=== PATIENT | female | born 1970 | race African-American/Black ===

== ENCOUNTER → 2020-10-26 15:51 | Outpatient (CLI) | payer OTHER, SELFPAY ==
--- NOTE | ~2020-10-26 | MM_ITS ---
EXAMINATION: MM screening yolis BI w maxx HISTORY: Screening mammogram TECHNIQUE: Craniocaudal and mediolateral oblique 3-D tomosynthesis images were obtained and synthetic 2-D images were generated. CAD analysis was submitted and interpreted. COMPARISON: No prior mammogram is available for comparison at this institution. BREAST PARENCHYMAL COMPOSITION: The breasts are extremely dense, which lowers the sensitivity of mamm ography. FINDINGS: RIGHT BREAST: There are obscured masses in the middle third of the inner and outer breast. LEFT BREAST: There is no evidence of suspicious mass, calcification, or architectural distortion to s uggest malignancy. IMPRESSION: 1. Obscured right breast masses which may represent the patient's baseline however no comparison is c urrently available. 2. Comparison with prior mammograms is necessary. BI-RADS Category 0: Incomplete: Needs comparison with prior mammograms. Reviewed, dictated and finalized at location A. IMPRESSION: 1. Obscured right breast masses which may represent the patient's baseline moreno nemesio no comparison is currently available. 2. Comparison with prior mammograms is necessary. BI-RADS Category 0: Incomplete: Needs comparison with prior mammograms.
== END ==
PROVIDERS: Visit Provider Obstetrics & Gynecology
DX: Z12.31 Encounter for screening mammogram for malignant neoplasm of breast (principal); R92.8 Other abnormal and inconclusive findings on diagnostic imaging of breast
CPT/HCPCS: 77063; 77067

== ENCOUNTER 2020-12-07 01:41 | Day surgery (SDC) | payer OTHER, SELFPAY ==
[2020-11-03 13:56] VITALS: BMI 22.1
[2020-11-24 13:03] VITALS: BMI 22.8
[2020-12-07 09:34] VITALS: BP 115/78; PULSE 76; RESP 16; TEMP 36.1; O2SAT 100; BMI 22.5
[2020-12-07] MEDS: LACTATED RINGERS 1,000 ML 150 ML IV CONT (09:50)
--- NOTE | 2020-12-07 09:54 | WPDGICN ---
Assessment and Plan Assessment and plan (1) Encounter for screening colonoscopy: Code(s): Z12.11 - Encounter for screening for malignant neoplasm of colon Status: Acute Assessment and Plan: Patient presents for screening colonoscopy. Appears to be at average risk for colon polyps. GI Consult Note Consult date/time: 12/07/20 09:54 HPI: Shanice Jacques is a 50 year old female Presents for neoplasia screening. Patient reports that her current weight appetite bowel movements are normal. Patient denies abdominal pain. Patient has had no bleeding. Family history is noncontributory. Review of Systems Review of Systems: All systems reviewed & are unremarkable except as noted in HPI and below [facility] History Surgical History (Updated 11/11/20 @ 12:27 by Leon Bai DO) History of tubal ligation Social History Social History Smoking status: Never smoker Alcohol intake: current Drinks per week: 2 Alcohol use details: a few times a month Substance use: never Substance use type: does not use Living arrangements: with family Spiritual care concerns: No Meds Home Medications and Allergies Home Medications Medication Instructions Recorded Confirmed Type No Home Medications 11/03/20 12/07/20 History Allergies Allergy/AdvReac Type Severity Reaction Status Date / Time No Known Allergies Allergy Verified 12/07/20 09:34 Vital Signs Vital Signs - 24 hr 12/07/20 09:34 Temperature 97 F L Pulse Rate 76 Respiratory Rate 16 Blood Pressure 115/78 Pulse Oximetry 100 Exam Narrative: Physical exam reveals patient be alert. Vital signs stable. HEENT exam is unremarkable. Patient is anicteric. Lungs are clear to auscultation and percussion. Heart is without murmur or extra sounds. Abdominal exam bowel sounds are present soft nontender with no organomegaly. Digital external rectal exam is normal.
[2020-12-07 10:24] VITALS: BP 98/60; PULSE 78; RESP 16; O2SAT 100
[2020-12-07 10:34] VITALS: BP 106/73; PULSE 73; RESP 18; O2SAT 100
[2020-12-07 10:44] VITALS: BP 118/77; PULSE 60; RESP 16; O2SAT 100
== END 2020-12-07 11:00 | disposition home or self-care (01) ==
PROVIDERS: PCP Family Medicine; Visit Provider Internal Medicine Gastroenterology
PROC: 0DJD8ZZ Inspection of Lower Intestinal Tract, Via Natural or Artificial Opening Endoscopic (ICD-10-PCS; CPT 45378; principal; 2020-12-07 10:30)
DX: Z12.11 Encounter for screening for malignant neoplasm of colon (principal); K64.8 Other hemorrhoids
CPT/HCPCS: 45378; J2704; J7120

== ENCOUNTER → 2022-05-21 10:50 | Outpatient (CLI) | payer OTHER, SELFPAY ==
--- NOTE | ~2022-05-21 | MM_ITS ---
EXAMINATION: MM screening yolis BI w maxx HISTORY: Screening mammogram TECHNIQUE: Craniocaudal and mediolateral oblique 3-D tomosynthesis images were obtained and synthetic 2-D images were generated. CAD analysis was submitted and interpreted. COMPARISON: 10/26/2020, 10/09/2019, 05/23/2018 bilateral screening mammogram examinations BREAST PARENCHYMAL COMPOSITION: The breasts are extremely dense, which lowers the sensitivity of mamm ography. FINDINGS: There is an approximately 2 cm circumscribed mass in the mid to lower outer right breast. D iagnostic right mammogram and right breast ultrasound examination are recommended. Otherwise there is no evidence of suspicious mass, calcification, or architectural distortion to sugg est malignancy in either breast. There are multiple bilateral benign calcifications. There has been n o other suspicious interval change. IMPRESSION: 1. New 2 cm circumscribed mid to lower outer right breast mass 2. Diagnostic right mammogram and right breast ultrasound examination are recommended BI-RADS Category 0: Incomplete: Needs additional imaging evaluation. Reviewed, dictated and finalized at location A. IMPRESSION: 1. New 2 cm circumscribed mid to lower outer right breast mass 2. Diagnostic right mammogram and right breast ultrasound examination are recom mended BI-RADS Category 0: Incomplete: Needs additional imaging evaluation.
== END ==
PROVIDERS: PCP Obstetrics & Gynecology; Visit Provider Obstetrics & Gynecology
DX: Z12.31 Encounter for screening mammogram for malignant neoplasm of breast (principal); R92.8 Other abnormal and inconclusive findings on diagnostic imaging of breast
CPT/HCPCS: 77063; 77067

== ENCOUNTER → 2022-07-30 09:38 | Outpatient (CLI) | payer OTHER, SELFPAY ==
--- NOTE | ~2022-07-30 | MMUS_ITS ---
EXAMINATION: MM diagnostic yolis RT w maxx, US breast RT limited HISTORY: Right breast mass on screening mammogram TECHNIQUE: Additional 3-D tomosynthesis images of the right breast were performed and synthetic 2-D i mages were generated. CAD analysis was submitted and interpreted. High resolution limited right breas t ultrasound was performed. COMPARISON: 05/21/2022, 10/26/2020, 10/09/2019 BREAST PARENCHYMAL COMPOSITION: The breasts are extremely dense, which lowers the sensitivity of mamm ography. FINDINGS: MAMMOGRAPHIC FINDINGS: There is a 2.4 cm oval, obscured, equal density mass in the anterior third of the lower-outer breast at 8:00 location, 4 cm from the nipple. ULTRASOUND: There is a 1.9 cm cyst at the 7:30 location, 4 cm from the nipple corresponding to the mammographic f inding in question. There is a 9 mm cyst near the nipple. There is a 5 mm cyst at the 6:00 location, 4 cm from the nipple. IMPRESSION: 1. No mammographic or sonographic evidence of malignancy. 2. Recommend routine screening mammography in one year. BI-RADS Category 2: Benign finding(s). Reviewed, dictated and finalized at location A. IMPRESSION: 1. No mammographic or sonographic evidence of malignancy. 2. Recommend routine screening mammography in one year. BI-RADS Category 2: Benign finding(s).
== END ==
PROVIDERS: PCP Obstetrics & Gynecology; Visit Provider Obstetrics & Gynecology
DX: R92.8 Other abnormal and inconclusive findings on diagnostic imaging of breast (principal)
CPT/HCPCS: 76642; 77061; 77065; G0279

== ENCOUNTER 2023-03-06 10:27 | Outpatient (CLI) | payer OTHER, SELFPAY ==
--- NOTE | ~2023-03-06 | MMUS_ITS ---
EXAMINATION: MM diagnostic yolis BI w maxx, US breast BI complete HISTORY: Enlarging right breast lump TECHNIQUE: Bilateral full field and spot right 3-D tomosynthesis images were performed and synthetic 2-D images were generated. CAD analysis was submitted and interpreted. High resolution bilateral comp lete breast ultrasound examination of all 4 quadrants and subareolar areas was performed. COMPARISON: 07/30/2022 diagnostic right mammogram and limited right breast ultrasound 05/21/2022, 10/26/2020 bilateral screening mammogram examinations there is an approximate 4 x 5 cm circ umscribed opacity anteriorly in the inner mid right breast, corresponding to the area of clinical com plaint of enlarging right breast lump, a new finding since 10/26/2020. The extremely dense stroma may obscure masses bilaterally. Bilateral complete breast ultrasound exami nation was performed. Scattered bilateral benign calcifications are noted. BREAST PARENCHYMAL COMPOSITION: The breasts are extremely dense, which lowers the sensitivity of mamm ography. FINDINGS: MAMMOGRAPHIC FINDINGS: There is an approximate 4 x 5 cm circumscribed opacity anteriorly in the inner mid right breast, ana luisa esponding to the area of clinical complaint of enlarging right breast lump, a new finding since 2020. The extremely dense stroma may obscure masses bilaterally. Bilateral complete breast ultrasound exami nation was performed. Scattered bilateral benign calcifications are noted. ULTRASOUND: No suspicious mass or shadowing of either breast is detected. The following cysts were id entified: Right breast: Corresponding to the mammographic finding is at 2:00-6:00 is a 2.7 x 4.2 cm sonolucency with through transmission and posterior enhancement consistent with large cyst. Additional simple cysts are identified at 12:00 1 cm from nipple, measuring up to 4.6 mm, at 6:00 4 c m from nipple, measuring up to 6 mm and at 9:00 3 cm from nipple, measuring up to 11 mm, in addition to an approximately 6.8 mm subareolar right cyst. Left breast: 3:00 4 cm from nipple: Complicated 8 x 8.8 x 6.3 mm cyst with through transmission and posterior enha ncement 4-6:00: Up to 2.2 x 1.5 x 3.7 cm septated cyst 8:00: 4.4 x 6 mm cyst IMPRESSION: 1. Bilateral benign cysts; no mammographic or sonographic evidence of malignancy is detected 2. Routine mammographic screening is recommended BI-RADS Category 2: Benign finding(s). Reviewed, dictated and finalized at location A. FORM POWER TECHNICIAN IMPRESSION: 1. Bilateral benign cysts; no mammographic or sonographic evidence of malignanc y is detected 2. Routine mammographic screening is recommended BI-RADS Category 2: Benign finding(s).
== END 2023-03-06 10:28 | disposition home or self-care (01) ==
LOC: ANHIMG 10:32
PROVIDERS: PCP Nurse Practitioner; Visit Provider Nurse Practitioner
DX: N63.0 Unspecified lump in unspecified breast (principal)
CPT/HCPCS: 76641; 77062; 77066; G0279

== ENCOUNTER 2025-01-28 15:42 | Outpatient (CLI) | payer OTHER, SELFPAY ==
--- NOTE | ~2025-01-28 | MM_ITS ---
EXAMINATION: MM screening [facility] BI w maxx HISTORY: Screening TECHNIQUE: Craniocaudal and mediolateral oblique 3-D tomosynthesis images were obtained and synthetic 2-D images were generated. CAD analysis was submitted and interpreted. COMPARISON: Comparison to multiple prior studies sequentially, with oldest reviewed study dated 05/23/2018. BREAST PARENCHYMAL COMPOSITION: Dense: The breasts are extremely dense, which lowers the sensitivity of mammography. FINDINGS: Decreased size of partially obscured benign mass lower inner quadrant of the right breast, middle third, previously characterized as a cyst. There is no evidence of suspicious mass, calcification, or architectural distortion to suggest malignancy in either breast. There has been no suspicious interval change. IMPRESSION: 1. No mammographic evidence of malignancy. 2. Recommend routine screening mammography in one year. BI-RADS Category 2: Benign finding(s). Reviewed, dictated and finalized at location O. CLEANER
--- OUTSIDE RECORDS SUMMARY | 2025-01-28 18:22 | XMS_ITS | Clinical Summary ---
Author Organization [facility] Address [address] [place] [address] Care Team Providers Care Barber Name Role Phone Unavailable Primary Care Provider Unavailabl e Source Comments [facility],non-owned Affiliates and Associated Physician Practices is amultiple site organization consisting of ambulatory clinics and hospital sitesin [place], [place], [place] and [place]. This disclosure is being madepursuant to the Care Everywhere program and may not contain all information available regarding this patient. 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 Gender Identity Not on file Sexual Orientation Not on file Plan of Treatment Health Maintenance Due Date Last Done Comments COLOGUARD (AGES 45-75) - COL ON CA SCREENING 1968 COLON MONITORING 1968 COLONOSCOPY - COLON CA SCREENING 1968 CT COLONOGRAPHY - COLON CA SCREENING 1968 Colorectal Cancer Screening 1968 FIT - COLON CA SCREENING 1968 FLEX SIG - COLON CA SCREENING 1968 LIPID TESTING 1968 MAMMOGRAM 1968 HIV SCREENING 11/01/1983 HEPATITIS C SCREENING 10/27/1986 DTAP/TDAP/TD VACCINES (1 - Tdap) 11/01/1987 HEPATITIS B VACCINE (1 of 3 - 19+ 3-dose series) 11/01/1987 Cervical Cancer Screening 1989 PAP SMEAR 1989 PAP with HPV 1998 PNEUMOCOCCAL VACCINE 50+ (1 of 1 - PCV) 2018 ZOSTER VACCINE (1 of 2) 2018 DEPRESSION SCREENING 03/11/2024 COVID-19 VACCINE ( - 2024-2 6 season) 2024 INFLUENZA VACCINE (#1) 2024 HIB VACCINE Aged Out No longer eligi ble based on patient's age to complete this topic HPV VACCINE Aged Out No longer eligi ble based on patient's age to complete this topic MENINGOCOCCAL (Group B) VACC INE SHARED DECISION-MAKING Aged Out No longer eligibl e based on patient's age to complete this topic MENINGOCOCCAL GROUPS A/C/Y/W VACCINE Aged Out No longer eligible b ased on patient's age to complete this topic Insurance [employer]
--- OUTSIDE RECORDS SUMMARY | 2025-01-28 18:22 | XMS_ITS | Clinical Summary ---
Author Organization [facility] Address [address] [place] [id number] Care Team Providers Care Value Analysis Coordinator Name Role Phone Jignesh Mayer MD Primary Care Provider [phone] Allergies No known active allergies Medications dextromethorphan -guaiFENesin ER (MUCINEX DM) 30-600 MG TABLET SR 12 HR 12 hr tablet Take 1 tablet by mouth every 12 (twelve) hours as needed. 28 tablet 03/26/2023 Active Social History Tobacco Use Types Packs/Day Years Used Date Smoking Tobacco: Never Smokeless Tobacco: Never Tobacco Cessation:Counseling Given: Not Answered Comments No Sex and Gender Information Value Date Recorded Sex Assigned at Not on file Legal Sex Female 7:17 PM CDT Gender Identity Not on file Sexual Orientation Not on file Last Filed Vital Signs Vital Sign Reading Time Taken Comments Blood Pressure 137/80 03/26/2023 4:13 PM MANAGER PRACTICE Pulse 123 03/26/2023 4:13 PM MANAGER PRACTICE Temperature 39.2 C (102.6 F) 03/26/2023 4:13 PM MANAGER PRACTICE Respiratory Rate 18 03/26/2023 4:13 PM MANAGER PRACTICE Oxygen Saturation 98% 03/26/2023 4:13 PM MANAGER PRACTICE Inhaled Oxygen Concentration - - Weight 68 kg (150 lb) 03/26/2023 4:13 PM MANAGER PRACTICE Height 172.7 cm (5' 8) 03/26/2023 4:13 PM MANAGER PRACTICE Body Mass Index 22.81 03/26/2023 4:13 PM MANAGER PRACTICE Plan of Treatment Health Maintenance Due Date Last Done Comments Colorectal Cancer Screening Colonoscopy (10 Years) 1968 Annual Physical 11/01/1971 DTaP, Tdap and Td Vaccines (1 - Tdap) 11/01/1987 Hepatitis B Vaccines (1 of 3 - 19+ 3-dose series) 11/01/1987 Cervical Cancer Screening Pap with HPV Testing (Age 30 to 64) Every 5 Years 1998 Mammogram Screening 2008 Pneumococcal Vaccine: 50+ Years (1 of 1 - PCV) 2018 Zoster Vaccines (1 of 2) 2018 COVID-19 Vaccine (3 - season) 2024 06/23/2020, 06/02/2020 Influenza Adult (#1) 2024 Cervical Cancer Screening Pap Smear (Age 30 to 64) Every 3 Years 02/14/2026 02/14/2023, 02/14/2023, 02/14/2023, Additional history exists Cervical Cancer Screening with HPV 02/14/2026 Hepatitis C Completed 02/14/2023 Hepatitis A Vaccines Aged Out No long er eligible based on patient's age to complete this topic Meningococcal B Vaccine Aged Out No l onger eligible based on patient's age to complete this topic Meningococcal Vaccine Aged Out No deidra duc eligible based on patient's age to complete this topic RSV Immunizations Under 20 Months Aged Out No longer eligible based on patient's age to complete this topic Insurance [facility] OPEN [facility] [place] [employer] Care Teams Value Analysis Coordinator Relationship Specialty Start Date End Date Jignesh Mayer MD PCP - General FAMILY PRACTICE 10/18/22
--- OUTSIDE RECORDS SUMMARY | 2025-01-28 18:22 | XMS_ITS | Data Portability ---
Author Organization [facility] Address [address] [place] [address] Assessment Encounter Date Assessment Date Assessment LastModified by Organization Details LastModified Time 02/12/2022 02/12/2022 Annual gynecological exam performed. Patient will come back in a year unless there are new symptoms. Not available 02/12/2022 09:53:29 02/14/2023 02/14/2023 Annual gynecological exam performed. Patient will come back in a year unless there are new symptoms. [email or web address] Not available 02/14/2023 16:32:59 07/06/2024 07/06/2024 Annual gynecological exam performed. Patient will come back in a year unless there are new symptoms. [email or web address] Not available 07/06/2024 16:46:22 Plan of Treatment Reminders Order Date Submit Date Provider Last Modified By Organization Details Last Modified Time Details Appointments None recorded. Lab pap, IG + HR HPV - HPV regardless but if HPV is positive need subtyping 16,18/45 2024 025 [facility] (Lab), [address], [place], [address], 14:56:42 CMP, serum or plasma 2024 025 [place] [facility], [address], [address], [place], [address], 05:01:53 CBC w/ auto diff 2024 025 [facility], [address], [address], [place], [address], 05:01:53 lipid panel, serum 2024 025 [facility], [address], [address], [place], [address], 5 10:45:54 HbA1c (hemoglobin A1c), blood 2024 025 [facility], [address], [address], [place], [address], 05:01:54 TSH, serum or plasma 2024 025 [facility], [address], [address], [place], [address], 5 05:01:53 vitamin D, 25-hydroxy, total, serum 2024 025 [facility], [address], [address], [place], [address], 5 05:01:53 vitamin B12 + folate, serum or blood 2024 025 [facility], [address], [address], [place], [address], 5 05:01:53 hbcab (hepatitis B core Ab) igm, serum 2022 023 [facility] (Lab), [address] [place], [address], 3 21:45:55 HBsAg (hepatitis B surface Ag), serum 2022 023 [facility] (Lab), [address] [place], [address], 3 21:45:54 hepatitis C virus Ab, serum 2022 023 [facility] (Lab), [address], [place], [address], 3 21:45:55 unlisted lab - HIV 1/2 antigen/ant ibody, reflex confirmatio n 2022 023 [facility] (Lab), [address], [place], [address], 3 21:45:54 RPR (rapid plasma reagin), serum 2022 023 [facility] (Lab), [address] [facility], [place], [address], 3 21:45:55 CBC w/ auto diff 2021 022 [facility] (Lab), [address] [facility], [place], [address], 2 03:15:04 CMP, serum or plasma 2021 022 [facility] (Lab), [address] [facility], [place], [address], 2 03:15:03 lipid panel, blood 2021 022 [facility] (Lab), [address] [facility], [place], [address], 2 03:15:02 TSH, serum or plasma 2021 022 [facility] (Lab), [address] [facility], [place], [address], 2 03:15:03 vitamin D, 25-hydroxy, total, serum 2021 022 [facility] (Lab), [address] [facility], [place], [address], 2 03:15:04 CBC w/ auto diff [address] (Lab), [address] [place], [address], 3 14:13:26 CMP, serum or plasma [address] (Lab), [address] [facility], [place], [address], 3 14:13:26 lipid panel, blood [address] (Lab), [address] [facility], [place], [address], 3 14:13:26 TSH, serum or plasma [address] (Lab), [address] [facility], [place], [address], 3 14:13:26 vitamin D, 25-hydroxy, total, serum [address] (Lab), [address] [facility], [place], [address], 3 14:13:27 Referral None recorded. Procedures None recorded. Surgeries None recorded. Imaging MAMMO, diagnostic, digital, bilateral 2024 025 [facility], [address], [place], [address], 5 05:01:54 US, breast, bilateral, complete 2024 025 [facility], [address], [address], [place], [address], 5 05:01:54 MAMMO, diagnostic, digital, bilateral 2022 023 [facility], [address], [place], [address], 4 12:43:14 US, breast, bilateral, complete 2022 023 [facility], [address], [place], [address], 4 05:01:45 Medication Orders metronidazo le 500 mg tablet 2022 024 [place] [id number], [address], [place], [id number], 4 12:49:46 Patient TargetsNo targets recorded. Patient InstructionsNo instructions recorded. Reason for Referral None Reported. Results Created Date Observation Date Name Description Value Unit Range Abnormal Flag Note LastModifiedBy Organization Detail LastModifiedTime 02/13/2002/12/2022 LIPID PANEL ,AMA (LDL- CALC) total cholesterol 206 mg/dL 0-199 high Not Available [facility] (Lab) [address] [place], [address], 02/13/2022 03:15:02 02/13/20 22 02/12/2022 LIPID PANEL ,AMA (LDL- CALC) triglyceride s 123 mg/dL 0.00-1 50.00 NCEP Refer ence Value s for Trigl yceri yolie: Mildred l: <150 mg/dL Borde rline High: 150 - 199 mg/dL High: 200 - 499 mg/dL Very High: >/= 500 mg/dL Not Available [facility] (Lab) [address] [place], [address], 02/13/2022 03:15:02 02/13/20 22 02/12/2022 LIPID PANEL ,AMA (LDL- CALC) HDL cholesterol 68 mg/dL >40 Not Available [facility] (Lab) [address] [place], [address], 02/13/2022 03:15:02 02/13/20 22 02/12/2022 LIPID PANEL ,AMA (LDL- CALC) LDL cholesterol 113 mg/dL 0-99 high Cutof f value s recom gurmeet d by the Natio nal Avani stero l Educa tion Progr am: TEJAS ABLE: Avani stero l <200 mg/dL LDL <100 mg/dL BORDE RLINE : Avani stero l 200-2 39 mg/dL LDL 101-1 59 mg/dL HIGHE R RISK: Avani stero l >240 mg/dL LDL >160 mg/dL , HDL <40 mg/dL Not Available [facility] (Lab) [address] [facility], [place], [address], 02/13/2022 03:15:02 02/13/20 22 02/12/2022 LIPID PANEL ,AMA (LDL- CALC) non-HDL cholesterol 138 mg/dL no refere nce range A reaso nable goal for non-H DL avani stero l is one that is 30 mg/dL highe r than the LDL avani stero l goal. Not Available [facility] (Lab) [address] [facility], [place], [address], 02/13/2022 03:15:02 02/13/20 22 02/12/2022 LIPID PANEL ,AMA (LDL- CALC) chol/HDL ratio 3.0 . 0.0-5. 0 Not Available [facility] (Lab) [address] [place], [address], 02/13/2022 03:15:02 02/13/20 22 02/12/2022 CMP(C OMPRE HENSI VE METAB OLIC PANEL ) sodium 138 mmol/ L 133-14 6 Not Available [facility] (Lab) [address] [place], [address], 02/13/2022 03:15:03 02/13/20 22 02/12/2022 CMP(C OMPRE HENSI VE METAB OLIC PANEL ) potassium 4.3 mmol/ L 3.5-5. 1 Not Available [facility] (Lab) [address] [facility], [place], [address], 02/13/2022 03:15:03 02/13/20 22 02/12/2022 CMP(C OMPRE HENSI VE METAB OLIC PANEL ) chloride 102 mmol/ L 98-107 Not Available [facility] (Lab) [address] [facility], [place], [address], 02/13/2022 03:15:03 02/13/20 22 02/12/2022 CMP(C OMPRE HENSI VE METAB OLIC PANEL ) carbon dioxide 29 mmol/ L 21-31 Not Available [facility] (Lab) [address] [facility], [place], [address], 02/13/2022 03:15:03 02/13/20 22 02/12/2022 CMP(C OMPRE HENSI VE METAB OLIC PANEL ) anion gap 7 mmol/ L 4-13 Not Available [facility] (Lab) [address] [facility], [place], [address], 02/13/2022 03:15:03 02/13/20 22 02/12/2022 CMP(C OMPRE HENSI VE METAB OLIC PANEL ) blood urea nitrogen 11 mg/dL 7-25 Not Available [facility] (Lab) [address] [facility], [place], [address], 02/13/2022 03:15:03 02/13/20 22 02/12/2022 CMP(C OMPRE HENSI VE METAB OLIC PANEL ) creatinine 0.85 mg/dL 0.60-1 .30 Not Available [facility] (Lab) [address] [facility], [place], [address], 02/13/2022 03:15:03 02/13/20 22 02/12/2022 CMP(C OMPRE HENSI VE METAB OLIC PANEL ) egfrcr (CKD-epi 2020) 82 mL/mi n/1.7 3_m2 >=60 Not Available [facility] (Lab) [address] [facility], [place], [address], 02/13/2022 03:15:03 02/13/20 22 02/12/2022 CMP(C OMPRE HENSI VE METAB OLIC PANEL ) calcium 10.0 mg/dL 8.3-10 .5 Not Available [facility] (Lab) [address] [facility], [place], [address], 02/13/2022 03:15:03 02/13/20 22 02/12/2022 CMP(C OMPRE HENSI VE METAB OLIC PANEL ) glucose 71 mg/dL 70-100 Not Available [facility] (Lab) [address] [facility], [place], [address], 02/13/2022 03:15:03 02/13/20 22 02/12/2022 CMP(C OMPRE HENSI VE METAB OLIC PANEL ) protein, total 8.3 g/dL 6.4-8. 3 Not Available [facility] (Lab) [address] [facility], [place], [address], 02/13/2022 03:15:03 02/13/20 22 02/12/2022 CMP(C OMPRE HENSI VE METAB OLIC PANEL ) albumin 4.4 g/dL 3.5-5. 0 Not Available [facility] (Lab) [address] [place], [address], 02/13/2022 03:15:03 02/13/20 22 02/12/2022 CMP(C OMPRE HENSI VE METAB OLIC PANEL ) ALT 10 units /L 9-43 Not Available [facility] (Lab) [address] [place], [address], 02/13/2022 03:15:03 02/13/20 22 02/12/2022 CMP(C OMPRE HENSI VE METAB OLIC PANEL ) alkaline phosphatase 53 units /L 34-104 Not Available [facility] (Lab) [address] [place], [address], 02/13/2022 03:15:03 02/13/20 22 02/12/2022 CMP(C OMPRE HENSI VE METAB OLIC PANEL ) AST 17 units /L 13-39 Not Available [facility] (Lab) [address] [facility], [place], [address], 02/13/2022 03:15:03 02/13/20 22 02/12/2022 CMP(C OMPRE HENSI VE METAB OLIC PANEL ) bilirubin, total 0.8 mg/dL 0.2-1. 2 Not Available [facility] (Lab) [address] [facility], [place], [address], 02/13/2022 03:15:03 02/13/20 22 02/12/2022 TSH, REFLE X FREE T4 TSH 0.87 uIU/m L 0.30-5 .33 Not Available [facility] (Lab) [address] [facility], [place], [address], 02/13/2022 03:15:03 02/13/20 22 02/12/2022 VITAM IN D, 25-OH (TOTA L D2/D3 ) vitamin D, 25-hydroxy, total 30.6 NG/mL 30.0-1 00.0 Sugge stive of Defic iency : <20 ng/mL Sugge stive of Insuf ficie ncy: 20-29 ng/mL Sugge stive of Suffi cienc y: 30-10 0 ng/mL Sugge stive of Toxic ity: >150 ng/mL Not Available [facility] (Lab) [address] [facility], [place], [address], 02/13/2022 03:15:04 02/13/20 22 02/12/2022 CBC W/DIF F WBC 5.1 10'3/ uL 3.6-10 .2 Not Available [facility] (Lab) [address] [facility], [place], [address], 02/13/2022 03:15:04 02/13/20 22 02/12/2022 CBC W/DIF F RBC 5.07 10'6/ uL (based on docume nted legal sex) 4.10-5 .30 Not Available [facility] (Lab) [address] [facility], [place], [address], 02/13/2022 03:15:04 02/13/20 22 02/12/2022 CBC W/DIF F HGB 10.4 g/dL (based on docume nted legal sex) 11.9-1 5.8 low Not Available [facility] (Lab) [address] [facility], [place], [address], 02/13/2022 03:15:04 02/13/20 22 02/12/2022 CBC W/DIF F HCT 37.3 % (based on docume nted legal sex) 37.4-4 8.3 low Not Available [facility] (Lab) [address] [facility], [place], [address], 02/13/2022 03:15:04 02/13/20 22 02/12/2022 CBC W/DIF F MCV 73.6 fL 82.0-9 9.0 low Not Available [facility] (Lab) [address] [facility], [place], [address], 02/13/2022 03:15:04 02/13/20 22 02/12/2022 CBC W/DIF F MCH 20.5 pg 27.0-3 3.0 low Not Available [facility] (Lab) [address] [facility], [place], [address], 02/13/2022 03:15:04 02/13/20 22 02/12/2022 CBC W/DIF F MCHC 27.9 g/dL 32.0-3 6.0 low Not Available [facility] (Lab) [address] [facility], [place], [address], 02/13/2022 03:15:04 02/13/20 22 02/12/2022 CBC W/DIF F RDW 19.9 % 11.0-1 5.0 high Not Available [facility] (Lab) [address] [facility], [place], [address], 02/13/2022 03:15:04 02/13/20 22 02/12/2022 CBC W/DIF F plt 283 10'3/ uL 150-45 0 Not Available [facility] (Lab) [address] [facility], [place], [address], 02/13/2022 03:15:04 02/13/20 22 02/12/2022 CBC W/DIF F MPV . Not measu red Not Available [facility] (Lab) [address] [facility], [place], [address], 02/13/2022 03:15:04 02/13/20 22 02/12/2022 CBC W/DIF F NRBC's 0.0 % 0 Not Available [facility] (Lab) [address] [facility], [place], [address], 02/13/2022 03:15:04 02/13/20 22 02/12/2022 CBC W/DIF F absolute NRBCs 0.0 10'3/ uL 0 Not Available [facility] (Lab) [address] [facility], [place], [address], 02/13/2022 03:15:04 02/13/20 22 02/12/2022 CBC W/DIF F neutrophils 54.8 % 37.0-7 2.0 Not Available [facility] (Lab) [address] [facility], [place], [address], 02/13/2022 03:15:04 02/13/20 22 02/12/2022 CBC W/DIF F lymphocytes 33.1 % 16.0-4 8.0 Not Available [facility] (Lab) [address] [facility], [place], [address], 02/13/2022 03:15:04 02/13/20 22 02/12/2022 CBC W/DIF F monocytes 10.3 % 4.0-14 .0 Not Available [facility] (Lab) [address] [facility], [place], [address], 02/13/2022 03:15:04 02/13/20 22 02/12/2022 CBC W/DIF F eosinophils 0.6 % 0.0-9. 0 Not Available [facility] (Lab) [address] [facility], [place], [address], 02/13/2022 03:15:04 02/13/20 22 02/12/2022 CBC W/DIF F basophils 0.8 % 0.0-2. 0 Not Available [facility] (Lab) [address] [facility], [place], [address], 02/13/2022 03:15:04 02/13/20 22 02/12/2022 CBC W/DIF F immature granulocytes 0.4 % no define d refere nce range Not Available [facility] (Lab) [address] [facility], [place], [address], 02/13/2022 03:15:04 02/13/20 22 02/12/2022 CBC W/DIF F absolute neutrophils 2.8 10'3/ uL 1.1-6. 0 Not Available [facility] (Lab) [address] [facility], [place], [address], 02/13/2022 03:15:04 02/13/20 22 02/12/2022 CBC W/DIF F absolute lymphocytes 1.7 10'3/ uL 0.7-3. 4 Not Available [facility] (Lab) [address] [facility], [place], [address], 02/13/2022 03:15:04 02/13/20 22 02/12/2022 CBC W/DIF F absolute monocytes 0.5 10'3/ uL 0.3-1. 0 Not Available [facility] (Lab) [address] [place], [address], 02/13/2022 03:15:04 02/13/20 22 02/12/2022 CBC W/DIF F absolute eosinophils 0.0 10'3/ uL 0.0-0. 6 Not Available [facility] (Lab) [address] [facility], [place], [address], 02/13/2022 03:15:04 02/13/20 22 02/12/2022 CBC W/DIF F absolute basophils 0.0 10'3/ uL 0.0-0. 1 Not Available [facility] (Lab) [address] [facility], [place], [address], 02/13/2022 03:15:04 02/13/20 22 02/12/2022 CBC W/DIF F absolute immature granulocytes 0.0 10'3/ uL 0.00-0 .10 2021 2:11 AM: P indic ates parti al resul ts on a panel have been relea sed. Addit ional resul ts will follo w. 2021 2:11 AM: This resul t has been final verif ied. No addit ional or marti ed resul ts are expec mindi. Not Available [facility] (Lab) [address] [facility], [place], [address], 02/13/2022 03:15:04 02/13/20 22 02/12/2022 IMAGE GUIDE D PAP AND HPV REGAR DLESS image guided Pap, HPV regardless of Pap result SEE RESULT S BELOW CASE REPOR T: Cytol ogy Gynec ologi keyona Repor t Case: [id number] Autho deonte diaz Provi crow: Morgan Carr MD Colle cted: 02/12 1355 Order ing Locat ion: [place] Patho log[facility] Recei agustin: 02/13 0116 First Scree n: Socorro Potts ica Speci men: Scree farzana Pap - Image d, Cervi x STATE MENT OF ADEQU ACY: Satis facto ry for evalu ation Trans forma tion zone compo nent prese nt FINAL DIAGN OSIS: Negat marla for Intra epith elial Lesio n or Malig barbi (NIL) . Elect [address]aud[address] by Socorro Potts ica on 2021 at 3:41 PM ----- ----- ----- ----- ----- ----- ----- ----- ----- ----- ----- ----- ----- ----- ----- ----- ----- ---- HPV RESUL TS: HPV mRNA E6/E7 : No HPV mRNA Detec mindi NOTE: This high risk HPV mRNA assay detec ts fourt een high- risk HPV types (16, 18, 31, 33, 35, 39, 45, 51, 52, 56, 58, 59, 66, 68) witho ut diffe renti ation . COMME NT: Note: This speci men was revie wed by a Cytot echno logis t and/o r Patho logis t (as indic ated in this repor t) after evalu ation using the Thinp rep Imagi ng Syste m. CLINI [facility] INFOR MATIO N: Menst rual Statu s: LMP (if appli cable ): Clini keyona Histo ry/Pr eviou s Pap: Type of Neopl clover (if appli cable ): Signi fican t Clini keyona Findi ngs: Other Histo ry: Hormo christi (if appli cable ): PAP EDUCA ANDREAS L NOTE: The Pap Test is a scree farzana test with an inher ent false negat marla rate. Liqui d-bas ed sampl ing may decre ase, but will not elimi summer, false negat marla resul ts. A negat marla resul t does not precl ude the prese nce and/o r devel opmen t of disea se, since the prese nce of abnor mal cells in the sampl e depen ds on the locat ion of the lesio n and sampl ing techn ique. Tommie nued regul ar scree farzana is the best metho d of cance r preve ntion . If repor mindi cytol ogic findi ng do not corre late with physi keyona and/o r histo rical findi ngs, furth er inves tigat ion is recom gurmeet d, as clini edgar zamora nted. Not Available [facility] (Lab) [address], [place], [address], 02/13/2022 16:43:38 02/15/20 23 02/14/2023 HIV 1/2 ANTIG EN/AN TIBOD Y, REFLE X CONFI RMATI ON HIV antigen/anti body Nonrea ctive nonrea ctive HIV-1 antig en and HIV-1 /HIV- 2 antib odies were not detec mindi. No labor atory evide nce of HIV infec tion. Not Available [facility] (Lab) [address], [place], [address], 02/15/2023 21:45:54 02/15/20 23 02/14/2023 HEPAT ITIS B SURFA CE ANTIG EN hepatitis B surface antigen Non-re active non-re active This assay was perfo rmed using [employer] ratio n reage nts and test kits. Value s obtai gavin with other assay metho ds or kits canno t be used inter marti eably . Not Available [facility] (Lab) [address], [place], [address], 02/15/2023 21:45:54 02/15/20 23 02/14/2023 HEPAT ITIS C ANTIB LALA SCREE N, REFLE X TO CONFI RMATI ON hepatitis C antibody Non-re active non-re active Antib odies to HCV Not Detec mindi, does not exclu de the possi bilit y of expos ure to HCV. Not Available [facility] (Lab) [address], [place], [address], 02/15/2023 21:45:55 02/15/20 23 02/14/2023 RPR SCREE N/REF MARIAM TITER /FTA RPR screen Nonrea ctive nonrea ctive Not Available [facility] (Lab) [address], [place], [address], 02/15/2023 21:45:55 02/15/20 23 02/14/2023 HEPAT ITIS B CORE, IGM hepatitis B core IgM antibody Negati ve negati ve Not Available [facility] (Lab) [address], [place], [address], 02/15/2023 21:45:55 02/15/20 23 02/14/2023 IMAGE GUIDE D PAP AND HPV REGAR DLESS image guided Pap, HPV regardless of Pap result SEE RESULT S BELOW abnormal CASE REPOR T: Cytol ogy Gynec ologi keyona Repor t Case: [id number] Autho ridominiquen g Provi crow: Edda Fernandez, CATARINA Colle cted: 02/14 1644 Order ing Locat ion: [place] Patho [place] Recei agustin: 02/15 0857 First Scree n: Jay mathur, Rajni rosario, [place] Patho logis t: Merry Molina MD Speci men: Scree farzana Pap - Image d, Cervi x STATE MENT OF ADEQU ACY: Satis facto ry for evalu ation Trans forma tion zone compo nent prese nt FINAL DIAGN OSIS: Epith elial Cell Abnor malit y, Squam ous Cell: Atypi keyona Squam ous Cells of Undet ermin ed Signi fican ce (ASC- US). [address] by Merry Molina MD on 02/19 at 1:07 PM ----- ----- ----- ----- ----- ----- ----- ----- ----- ----- ----- ----- ----- ----- ----- ----- ----- ---- HPV RESUL TS: HPV mRNA E6/E7 : No HPV mRNA Detec mindi NOTE: This high risk HPV mRNA assay detec ts fourt een high- risk HPV types (16, 18, 31, 33, 35, 39, 45, 51, 52, 56, 58, 59, 66, 68) witho ut diffe renti ation . COMME NT: This speci men was revie wed by a Cytot echno logis t and/o r Patho logis t (as indic ated in this repor t) after evalu ation using the Thinp rep Imagi ng Syste m. CLINI [facility]ONA INFOR MATIO N: Menst rual Statu s: LMP (if appli cable ): Clini keyona Histo ry/Pr eviou s Pap: Type of Neopl clover (if appli cable ): Signi fican t Clini keyona Findi ngs: Other Histo ry: Hormo christi (if appli cable ): SUGGE STED FOLLO W-UP: Follo w up as warra nted, based on curre nt guide lines and indiv idual patie nt consi derat ions. Not Available [facility] (Lab) [address] [facility], [place], [address], 02/19/2023 14:10:04 02/15/20 23 02/14/2023 TRICH OMONA S VAGIN WANDY (RRNA ) trichomonas vaginalis ribosomal RNA (rrna) Negati ve negati ve Not Available [facility] (Lab) [address] [facility], [place], [address], 02/19/2023 14:10:05 02/15/20 23 02/14/2023 CT/GC (AMBER) , THINP REP VIAL chlamydia trachomatis, PCR Negati ve negati ve Not Available [facility] (Lab) [address] [facility], [place], [address], 02/19/2023 14:10:06 02/15/20 23 02/14/2023 CT/GC (AMBER) , THINP REP VIAL neisseria gonorrhoeae, PCR Negati ve negati ve Not Available [facility] (Lab) [address] [facility], [place], [address], 02/19/2023 14:10:06 05/22/19 23 05/21/2022 MAMMO , scree farzana, bilat eral No observ ation record ed. [facility] [address], [place], [address], 05/22/2022 16:16:23 05/23/19 23 05/21/2022 MAMMO , scree farzana, bilat eral No observ ation record ed. [facility] [address], [place], [address], 02/18/2023 13:57:34 06/23/1905/21/2022 MAMMO , scree farzana, bilat eral No observ ation record ed. [address], [place], [address], 07/03/2022 16:10:54 06/30/19 23 05/21/2022 MAMMO , scree farzana, bilat eral No observ ation record ed. [address] [facility] [address], [place], [address], 07/03/2022 16:10:54 07/31/19 23 07/30/2022 MAMMO , scree farzana, bilat eral No observ ation record ed. [facility] [address], [place], [address], 07/31/2022 10:22:44 03/18/19 24 03/06/2023 MAMMO , diagn ostic , digit al, bilat eral No observ ation record ed. [facility] [address], [place], [address], 03/26/2023 10:55:41 Result Notes None recorded. Problems Name Problem SNOMED Code Status Onset Date Resolution Date Notes Provider Name and Address Organization Details Recorded Time SNOMED CT Concept Completed 201909/29/2020 Encntr for exercise manager exam (general) (routine) w/o abn findings;R ecorded Elsewhere: No Locatio n: [facility] rce: EHR Chroni c: N Practice ID: [id number] Uday ble Time: 01:00:00 PM [facility] 17:44:13 Problem Notes None recorded. Procedures Surgical History Date Name Laterality Status Provider Name and Address Organization Details Recorded Time 02/14/2023 Date of Last Pap Smear completed Cordelia Olmosney [facility] 07/06/2024 16:47:25 12/07/2020 completed [facility] 12/15/2020 15:17:58 03/11/2002 Breast Biopsy completed [facility] 09/21/2019 13:58:37 Breast Biopsy completed [facility] 12/15/2020 15:18:01 Imaging Results None recorded. Procedure Notes None recorded. Medical Equipment None Reported. Allergies No known drug allergies Medications Name Sig Start Date Stop Date Status Note LastModified by Organization Details LastModified Time metronidazol e 500 mg tablet Take 1 tablet every 12 hours by oral route for 7 days. 03/15 completed Not Available Not Available Not Available ergocalcifer ol (vitamin D2) 1,250 mcg (50,000 unit) capsule TAKE 1 CAPSULE BY MOUTH EVERY WEEK 02/12 completed Not Available Not Available Not Available multivitamin active Not Available Not Available Not Available Vitals Date Recorded Body height Body mass index (BMI) Body weight Systolic And Diastolic Provider Name and Address Organization Details Last Updated DateTime 03/15/2023 172.72 cm 23.1 kg/m2 80763.04 g 134/84 mm[Hg] Nano Jaffe [facility] 03/15/2023 12:48:58 Date Recorded Body height Body mass index (BMI) Body weight Systolic And Diastolic Provider Name and Address Organization Details Last Updated DateTime 03/17/2022 172.72 cm 22.7 kg/m2 10085.26 g 140/72 mm[Hg] Christie Danielson [facility] 03/17/2022 12:23:35 Date Recorded Body height Body mass index (BMI) Body weight Systolic And Diastolic Provider Name and Address Organization Details Last Updated DateTime 07/06/2024 172.72 cm 24 kg/m2 18225.59 g 127/81 mm[Hg] Cordelia Jaeger [facility] 07/06/2024 16:46:53 Date Recorded Body height Body mass index (BMI) Body weight Systolic And Diastolic Provider Name and Address Organization Details Last Updated DateTime 02/12/2022 172.72 cm 22.5 kg/m2 58922.67 g 132/80 mm[Hg] Robyn Salas [facility] 02/12/2022 09:53:54 Date Recorded Body height Body mass index (BMI) Body weight Systolic And Diastolic Provider Name and Address Organization Details Last Updated DateTime 02/14/2023 172.72 cm 23 kg/m2 62878.17 g 138/84 mm[Hg] Shireen Olmstead [facility] 02/14/2023 16:34:23 Social History Question Answer Notes LastModified by Organizat ion Details LastModified Time Tobacco Smoking Status Never Smoker [facility] 02/12/2022 09:46:10 Do You Have An Advance Directive? No Information n ot available 09/29/2020 How Many Years Have You Consumed Alcohol? 35 Information not available 09/29/2020 Are You Blind Or Do You Have Difficulty Seeing? No Information n ot available 09/29/2020 What Is Your Level Of Caffeine Consumption? Occasional Information not available 09/29/2020 How Much Tobacco Do You Chew? None Information not available 09/29/2020 In The 14 Days Before Symptom Onset, Have You Had Close Contact With A Laboratory-confirm ed COVID-19 While That Case Was Ill? No Information n ot available 09/29/2020 In The 14 Days Before Symptom Onset, Have You Had Close Contact With A Person Who Is Under Investigation For COVID-19 While That Person Was Ill? No Information not available 09/29/2020 Have You Been To An Area Known To Be High Risk For COVID-19? No Information not available 09/29/2020 Are You Deaf Or Do You Have Serious Difficulty Hearing? No Information not available 09/29/2020 What Type Of Diet Are You Following? REGULAR Information n ot available 09/29/2020 What Is The Highest Grade Or Level Of School You Have Completed Or The Highest Degree You Have Received? [id number] Information not available 09/29/2020 Are There Any Guns Present In Your Home? No Information not available 09/29/2020 Do You Use Protection During Sex? No Information not available 09/29/2020 Do You Use Your Seat Belt Or Car Seat Routinely? Yes Information not available 09/29/2020 Do You Have Smoke And Carbon Monoxide Detectors In Your Home? Yes Information not available 09/29/2020 How Much Tobacco Do You Smoke? No Information not available 09/29/2020 Do You Use Sunscreen Routinely? No Information not available 09/29/2020 Have You Used IV Drugs? No Information not available 09/29/2020 Sex: Unknown Functional Status Question Answer Note LastModified by Organizat ion Details LastModified Time Do you use any illicit or recreational drugs? No Information not available 09/29/2020 What is your level of alcohol consumption? Occasional Information not available 09/29/2020 Are you able to walk independently without assistance or assistive devices? 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 Moderate Information not available 09/29/2020 Mental Status Question Answer Note LastModified by Organization D etails LastModified Time Do you feel stressed (tense, restless, nervous, or anxious, or unable to sleep at night)? [id number] Information not available 09/29/2020 Family History Relationship Description Onset Age of this Age Resolved Age Notes LastModified by Organization Details LastModified Time Mother Diabetes mellitus Not available 2019 14:12:09 Mother Hypertensive disorder Not available 2019 14:12:22 Father Diabetes mellitus Not available 2019 14:12:09 Maternal Grandmother Asthma Not available 09/08 14:15:55 Maternal Grandmother Heart disease Not available 2019 14:16:07 Maternal Grandmother Hypertensive disorder Not available 2019 14:16:21 Paternal Grandmother Hypertensive disorder Not available 2019 14:16:26 Maternal Aunt Asthma Not anna ilable 09/21/2019 14:16:47 Maternal Aunt Hypertensive disorder Not available 2019 14:16:59 Medical History Condition Response Allergies (Food, seasonal, environmental ) N Other N Breast Cancer N Drug/Latex Allergies/Reactions N Blood Transfusion N Dermatologic Disorders N Lung Disease N Defects or Inherited Disease N Breast Problem N Gestational Diabetes N Hematologic disorders N Anesthesia Complications N History of STI N Deep Vein Thrombosis N Polycystic ovary syndrome N Anxiety Disorder N Autoimmune disease N Arthritis N Infertility N Polyps N Acid Reflux (GERD) N History of abnormal pap N Cancer N Stroke N Varicosities N Neurologic/Epilepsy N Endometriosis N High Cholesterol N Headaches N Fibromyalgia N Kidney Disease N Heart Problems N Kidney or Bladder Problems N Thyroid Problems N GI Problems N Eating Disorder N Anemia N Art (IVF or FET) N Psychiatric Illness N Ovarian Cancer N Diabetes N Pulmonary (TB, Asthma) N Hepatitis/Liver Disease N No Past Medical History N Eczema N Urinary Tract Infection N Abuse/Domestic Violence N Asthma N Trauma/Violence N Depression/ depression N Heart Disease N Pre-Eclampsia N Hypertension N Osteoporosis N Thrombophilias N Gynecological History Statement/Question Response Abnormal Pap Y Date of Last Mammogram On BCP's at Conception? N N STIs/STDs N HPV Vaccine N 13 Current Control Method Tubal Ligat ion Age at First Child 23 Date of Last Colonoscopy Sexually Active? N Menses Monthly N Date of DEXA bone scan Age of first menstrual cycle 11 Date of Last Pap Smear 02/14/2023 Sexual Problems? N LMP Unknown 12/07/2020 N Obstetrics History GPAL:G 3 P 3 0 0 3 Type Value Full Term 3 Living 3 Total 3 Past Encounters Encounter ID Performer Location Encounter Start Date Encounter Closed Date Diagnosis/Indication Diagnosis SNOMED-CT Code Diagnosis ICD10 Code Diagnosis IMO Codes Diagnosis Note [id number] Jimy Carr MD [place] [address] [address] 09/21/2019 13:51:41 09/21/2019 14:37:47 Gynecologic examination 58570516 Z01.419 Routine gy necologic examination done [id number] 9101 Z01.419 this patient is here for her annual exam. A thorough history was taken. A physical exam was performed. Age appropriat e routine health screening was ordered, performed, and discussed. Recommende d testing was ordered. She was asked to follow up in one year. She will be informed of any test results. Mammogram - [ ]Mammogram and breast ultrasound ordered today. Patientcom plained about breast lump today. Breast mass palpable at the inferior lateral quadrant of the left breast. Is 3 cm. Is likely fibrocysti c disease. To follow-up on imaging. Colonoscop y - [ ] to arrange for GI consult Bone Density - [ ] Cholestero l - [ ] ordered Pap - today [id number] Jimy Carr MD [place] [address] [address] 09/29/2020 17:32:51 10/02/2020 15:35:13 Gynecologic examination [id number] Z01.419 This patient is here for her annual exam. A thorough history was taken. A physical exam was performed. Age appropriat e routine health screening was ordered, performed, and discussed. Recommende d testing was ordered. She was asked to follow up in one year. She will be informed of any test results. To observe breast pain exam was normal, nontender, no masses, to have mammogram. Given recommenda tions on mastalgia, likely ligament pain Mammogram - [ ] done ordered Colonoscop y - [ ] to arrange consult Bone Density - [ ] not applicable Cholestero l - [ ] to be drawn today Pap - today [id number] Jimy Carr MD [place] [address] [address] 12/15/2020 15:07:23 12/15/2020 15:58:29 Abnormal uterine bleeding [id number] 9100 N93.9 This patient is a 50-year-ol d female with a single episode of prolonged bleeding. She has had regular periods until recently when she had a menses at an unexpected time. It lasted days. We discussed irregular bleeding. We discussed perimenopa usal bleeding. We discussed and evaluation . Discussed endometria l biopsy. We discussed perimenopa use and the menopausal transition . We spent over 25 minutes face-to-fa ce. We agreed to observe her problem. If her bleeding persists for 60 more days she will return and we will evaluate. [id number] Jimy Carr MD [place] [address] [address] 02/12/2022 09:46:05 02/12/2022 10:16:46 Gynecologic examination 09034022 Z01.419 This patient is here for her annual exam. A thorough history was taken. A physical exam was performed. Age appropriat e routine health screening was ordered, performed, and discussed. Recommende d testing was ordered. She was asked to follow up in one year. She will be informed of any test results. To observe breast pain exam was normal, nontender, no masses, to have mammogram. Given recommenda tions on mastalgia, likely ligament pain Mammogram - done ordered Colonoscop y - done Bone Density - not applicable Cholestero l - to be drawn today Pap - today [id number] CHRISTY Vazquez [place] [address] [address] 02/14/2023 16:14:31 02/15/2023 13:13:45 Gynecologic examination [id number] Z01.419 WWEBC - BTLpap updatedgc/ ct/trich testing added to papblood STI panel ordereddia gnostic mammogram w/ bilateral breast u/s ordered, encouraged to scheduleco deidra CA screening discussed and encouraged strawberry appearance of cervixSTI testing sentmetron idazole rx sentif testing (-), f/u after metronidaz ole course for exam Take Calcium with Vitamin D daily. Do monthly self breast exams. It is advised to get annual flu shot in the fall and she could obtain at [facility] or [facility] take care clinic. If you haven't received the Tdap vaccine in the last 10 years you should obtain one as well. Have mammogram yearly, bone density every 2-3 years and colonoscop y every 5-10 years depending on findings and history. Engage in daily exercise of low impact aerobic exercise 45-60 minutes 4-5 times weekly. Avoid tobacco and illicit drugs as well as using moderation with alcohol intake less than 1-2 8 oz beverages daily. This lifestyle behavior pattern will lead to less health conditions and longer life span. If BMI greater than 25 dietary consult advised. Questions have been answered. Patient appears to understand instructio ns, but if you have any further questions call or respond to this email Breast lump [id number] N63 .0 Vaginitis 23022354 N76.0 Venereal d isease screening 455712412 Z11.3 Sexually t ransmitted infectious disease 2772352 A64 Lesion of cervix 4178052 01 N88.9 [id number] Jimy Carr MD [place] [address] [address] 03/17/2022 12:07:23 03/17/2022 12:53:24 Pain of right breast 7559248623 N64.4 This patient is a 51-year-ol d female presents for breast pain. It is a burning pain at the nipple. It began as a sharp pain in the lateral aspect of the right breast. Not runs into the nipple. She is examined. There is no masses. There is no nipple discharge. There is no recent infection. There is some fibrocysti c change the breast. She has a mammogram scheduled in 2 months. We agreed to follow the regular recommenda tions for breast pain that include primary is a I will, ibuprofen, diverting broad, voids of caffeine and chocolate. spent more than 20 minutes face-to-fa ce. More than 50% was counseling . We will look forward to seeing her in 2 months. [id number] CHRISTY Vazquez [place] [address] [address] 03/15/2023 12:42:58 03/19/2023 09:16:56 Lesion of cervix 054025497 N88.9 Exam improved, no longer appearance of strawberry cervixreco mmended repeat pap in 1 yr Time spent in visit is a total of 15 mins with at least 50% of visit consisting of counseling and review of plan of care. [id number] CHRISTY Vazquez [place] [address] [address] 07/06/2024 16:31:23 07/07/2024 14:22:55 Gynecologic examination 99858507 Z01.892 [id number] WWEpostmen opausalPap - done todaySTI screen - declinedMa mmogram - order givenColon cancer screening - UTDDexa - n/aRoutine labs - order givenRTC in 1 yr or sooner if needed Do monthly self breast exams.It is advised to get annual flu shot in the fall and she could obtain at local pharmacy. If you haven't received the Tdap vaccine in the last 10 years you should obtain one as well.Have mammogram yearly, bone density every 2-3 years and stay up to date on colon cancer screening. Engage in regular exercise. Avoid tobacco and illicit drugs. This lifestyle behavior pattern will lead to less health conditions and longer life span. If BMI greater than 25 dietary consult advised.Qu estions have been answered. Adult heal th examination 796956805 Z00.00 [id number] Breast lump 92796589 N63 .0 [id number] Health Concerns Section Related Observation LastModified by Organization Detai ls LastModified Time None Recorded Concern Status LastModified by Organization Details LastModified Time None Recorded Advance Directives Directive N: Payers Insurance Date Sequence Insurance Name Policy Number Policy Bangura Covered Member ID Bangura Member ID Guarantor Name 07/06/2024 1 [employer] - DOS PRIOR TO [address] - [facility] BENEFITS PLAN [id number] Shanice Manzy [id number] OI [id number] Shanice Manzy 07/06/2024 1 [employer] - [facility] BENEFITS PLAN (PPO) [id number] Shanice Manzy [id number] OI Shanice Manzy 07/06/2024 1 [employer] - 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 For vulva, patient reportsno genital lesion. For vagina, patient reportsnormal vaginal discharge.Breast symptomsFor breast, patient reportsno breast painandno breast lump.Endocrine symptomsFor menopausal symptoms, patient reportsno menopausal symptomsandnormal vaginal lubrication.Psychological symptomsFor psychological symptoms, patient reportsno depressionandno anxiety.Preventative measuresFor preventive measures, patient reportsencourage self breast examinationandencourage regular exercise. Jimy aCrr MD [address], [place], [address], [facility] 02/12/2022 10:14:10 03/17/19 23 text/htm l This patient is a 51-year-old female presents for breast pain. It is a burning pain at the nipple. It began as a sharp pain in the lateral aspect of the right breast. Not runs into the nipple. She is examined. There is no masses. There is no nipple discharge. There is no recent infection. There is some fibrocystic change the breast. She has a mammogram scheduled in 2 months. We agreed to follow the regular recommendations for breast pain that include primary is a I will, ibuprofen, diverting broad, voids of caffeine and chocolate. spent more than 20 minutes [id number]. More than 50% was counseling. We will look forward to seeing her in 2 months. Jimy Carr MD [address], [place], [address], [facility] 03/17/2022 12:51:39 02/15/20 23 text/htm l Annual GYNReported by PatientGenitourinary symptomsFor menstrual cycle, patient reportsperimenopausal. For urinary symptoms, patient reportsno hematuriaandno incontinence. For vulva, patient reportsno genital lesion. For vagina, patient reportsnormal vaginal discharge.Breast symptomsFor breast, patient reportsno breast pain,no breast lump, andno nipple discharge.ContraceptionFor current contraception, patient reportssatisfied with current contraceptionandtubal ligation.Endocrine symptomsFor sexual complaints, patient reportsno sexual complaints,no pain during intercourse, andnormal libido. For menopausal symptoms, patient reportsno menopausal symptomsandnormal vaginal lubrication.Psychological symptomsFor psychological symptoms, patient reportsno depression,no anxiety, andno pmdd.Preventative measuresFor preventive measures, patient reportsencourage self breast examination,encourage regular exercise,encourage no tobacco use, andencourage regular mammograms starting age 40.last pap smear 2020 - normalright breast lump present for a few months, bigger in size. No tenderness or pain CHRISTY Vazquez [address], [place], [address], [facility] 02/15/2023 11:23:48 03/15/19 24 text/htm l 52yopresents for f/ustrawberry cervix noted at LOVcompleted metronidazole coursegc/ct/trich testing all negativepap ascus, HPV (-)no symptoms today, feeling well CHRISTY Vazquez [address], [place], [address], [facility] 03/18/2023 11:44:07 07/07/19 25 text/htm l Annual Nurse Recruiter Post-MenopausalReported by PatientGenitourinary symptomsFor menopausal symptoms, patient reportsno menopausal symptomsandnormal vaginal lubrication. For vaginal bleeding, patient reportshistory of menopause having occurredandno history of post menopausal bleeding. For urinary symptoms, patient reportsno hematuria,no incontinence,no nocturia, andno urinary frequency. For vulva, patient reportsno genital lesionandno vulvar atrophy. For vagina, patient reportsnormal vaginal dischargeandno vaginal atrophy.Breast symptomsFor breast, patient reportsno breast lump,no nipple discharge, andno breast pain.Psychological symptomsFor sexual complaints, patient reportsno sexual complaints. For psychological symptoms, patient reportsno depressionandno anxiety.Preventative measuresFor preventive measures, patient reportsencourage regular mammograms starting age 40,encourage self breast examination,encourage regular exercise, andencourage no tobacco use.53yo wweBC : BTLLMP 12 months agolast pap 02/2023 : ascus, HPV (-) CHRISTY Vazquez [address], [place], [address], [facility] 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 Status 09/21/19 20 1 CLOSED Fetus Data First Name Last Name Admitted to NICU Weight (g) Sex Living Outcome Pediatric Complications Fetus ID Race Codes Race Delivery Type [phone] [id number] Vaginal Delivery Cruzito Calculation Initial Cruzito Date Initial Exam Date Initial Exam Provider Initial Ultrasound Date Last Menstrual Period Date Ultra Sound Weeks Gestation 0 Eighteen To Twenty Week Cruzito Update Ultra Sound Date Fundal Height At Umbil Quickening Date Ultra Sound Latest Weeks Gestation Final Cruzito Confirmed By Final Cruzito Confirmed Date Final Cruzito Date Ultra Sound Latest Days Gestation 0 0 Menstrual History Last Menstrual Date Menses Monthly On Bcp Conception Prior Menses Frequency Hcg Plus Date Menarche Onset Age Delivery Information Delivery Date Delivery Type Labor Anesthesia Weeks Gestation Incision Type Labor Labor Length Hrs Delivered By Post Complications Tubal Sterilization Discharge Date Comments 7 Jaqueline Discharge Information Feeding Method Contraceptive Method Maternal HG B and HCT Levels Ob Episode Information Episode Created Date Number of Fetuses Patient Bloodtype Patient rh Status Prepregnancy Weight lbs Domestic Partner Domestic Partner Phone Father Name Strap Machine Operator Status 09/21/19 20 1 CLOSED Fetus Data First Name Last Name Admitted to NICU Weight (g) Sex Living Outcome Pediatric Complications Fetus ID Race Codes Race Delivery Type 3430.06 [id number] F [id number] Vaginal Delivery Cruzito Calculation Initial Cruzito Date Initial Exam Date Initial Exam Provider Initial Ultrasound Date Last Menstrual Period Date Ultra Sound Weeks Gestation 0 Eighteen To Twenty Week Cruzito Update Ultra Sound Date Fundal Height At Umbil Quickening Date Ultra Sound Latest Weeks Gestation Final Cruzito Confirmed By Final Cruzito Confirmed Date Final Cruzito Date Ultra Sound Latest Days Gestation 0 0 Menstrual History Last Menstrual Date Menses Monthly On Bcp Conception Prior Menses Frequency Hcg Plus Date Menarche Onset Age Delivery Information Delivery Date Delivery Type Labor Anesthesia Weeks Gestation Incision Type Labor Labor Length Hrs Delivered By Post Complications Tubal Sterilization Discharge Date Comments 4 Carolyn Discharge Information Feeding Method Contraceptive Method Maternal HG B and HCT Levels Ob Episode Information Episode Created Date Number of Fetuses Patient Bloodtype Patient rh Status Prepregnancy Weight lbs Domestic Partner Domestic Partner Phone Father Name Strap Machine Operator Status 09/21/19 20 1 CLOSED Fetus Data First Name Last Name Admitted to NICU Weight (g) Sex Living Outcome Pediatric Complications Fetus ID Race Codes Race Delivery Type [phone] [phone] F [id number] Vaginal Delivery Cruzito Calculation Initial Cruzito Date Initial Exam Date Initial Exam Provider Initial Ultrasound Date Last Menstrual Period Date Ultra Sound Weeks Gestation 0 Eighteen To Twenty Week Cruzito Update Ultra Sound Date Fundal Height At Umbil Quickening Date Ultra Sound Latest Weeks Gestation Final Cruzito Confirmed By Final Cruzito Confirmed Date Final Cruzito Date Ultra Sound Latest Days Gestation 0 0 Menstrual History Last Menstrual Date Menses Monthly On Bcp Conception Prior Menses Frequency Hcg Plus Date Menarche Onset Age Delivery Information Delivery Date Delivery Type Labor Anesthesia Weeks Gestation Incision Type Labor Labor Length Hrs Delivered By Post Complications Tubal Sterilization Discharge Date Comments 6 Jessica Discharge Information Feeding Method Contraceptive Method Maternal HG B and HCT Levels
--- OUTSIDE RECORDS SUMMARY | 2025-01-28 18:22 | XMS_ITS | Clinical Summary ---
Author Organization [facility] Address [address] [place] [address] Care Team Providers Care Substitute Nurse Name Role Phone Jignesh Mayer MD Primary Care Provider [phone] Allergies No known active allergies Medications No known medications Social History Tobacco Use Types Packs/Day Years Used Date Smoking Tobacco: Never Alcohol Use Standard Drinks/Week Comments No 0 (1 standard drink = 0.6 oz pur e alcohol) Comments No Sex and Gender Information Value Date Recorded Sex Assigned at Not on file Legal Sex Female 12:27 PM CDT Gender Identity Not on file Sexual Orientation Not on file Last Filed Vital Signs Vital Sign Reading Time Taken Comments Blood Pressure 135/81 06/27/2016 12:39 PM CDT Pulse 67 06/27/2016 12:39 PM CDT Temperature 36.6 C (97.8 F) 06/27/2016 12:39 PM CDT Respiratory Rate 18 06/27/2016 12:39 PM CDT Oxygen Saturation 97% 06/27/2016 12:39 PM CDT Inhaled Oxygen Concentration - - Weight 63.5 kg (140 lb) 06/27/2016 12:39 PM CDT Height 172.7 cm (5' 8) 06/27/2016 12:39 PM CDT Body Mass Index 21.29 06/27/2016 12:39 PM CDT Plan of Treatment Health Maintenance Due Date Last Done Comments Hepatitis C Virus (HCV) Screening 1970 TdaP Immunization 1968 Varicella Immunization (1 of 2 - 13+ 2-dose series) 1981 Hepatitis B Immunization (1 of 3 - 19+ 3-dose series) 11/01/1987 Pap Smear 1989 Cervical Cancer Screening (CCS) 1998 HPV/Cotest 1998 Cologuard 2013 Colonoscopy 2013 Colorectal Cancer Screening 2013 Immunochemical Fecal Occult Blood 2013 Pneumococcal Immunization (5 0+ years) (1 of 1 - PCV) 2018 Zoster Immunization (1 of 2) 2018 Influenza Immunization (#1) 2024 SARS-COV-2 Immunization (3 - 2024- season) 2024 06/23/2020, 06/02/2020 Respiratory Syncytial Virus (RSV) Immunization (Adult) (1 - 1-dose 75+ series) 11/01/2043 Human Papillomavirus (HPV) Immunization Aged Out No longer eligible b ased on patient's age to complete this topic Meningococcal Immunization (ACWY) Aged Out No longer eligible b ased on patient's age to complete this topic Rotavirus Immunization Aged Out No lo nger eligible based on patient's age to complete this topic Insurance [employer] [facility] Care Teams Substitute Nurse Relationship Specialty Start Date End Date Jignesh Mayer MD PCP - General Family Medicine 06/27/16
--- OUTSIDE RECORDS SUMMARY | 2025-01-28 18:22 | XMS_ITS | Clinical Summary ---
Author Organization [facility] Address [address] [place] [id number] Care Team Providers Care Dental Cream Maker Name Role Phone Addison Christy Primary Care Provider [phone] Allergies No known active allergies Medications guaiFENesin-dex tromethorphan ER (MUCINEX DM) 600-30 mg tablet extended release 12 hr Take 1 tablet by mouth every 12 (twelve) hours as needed 03/26/2023 Active TiZANidine (ZANAFLEX) 4 mg capsule Take 1 capsule (4 mg total) by mouth 3 (three) times a day as needed for muscle spasms 9 capsule 12/06/2024 Active Active Problems No known active problems Encounters Date Type Department Care Team Description 12/06/2024 6:39 PM CDT - 12/06/2024 6:51 PM CDT Emergency [facility] [place] [address] Fall, initial encounter (Primary Dx); Acute midline low back pain without sciatica Discharge Disposition: Discharge to home or self care from Last 3 Months Surgical History Surgery Date Site/Laterality Comments BREAST BIOPSY Family History Medical History Relation Name Comments Diabetes Father Diabetes Mother Hypertension Mother No Known Problems Sister Relation Name Status Comments Father Alive Mother Alive Sister Alive Social History Tobacco Use Types Packs/Day Years Used Date Smoking Tobacco: Never Smokeless Tobacco: Never Alcohol Use Standard Drinks/Week Comments Yes 0 (1 standard drink = 0.6 oz pur e alcohol) PHQ-2 Answer Date Recorded PHQ-2 Score 0 03/05/2019 Personal Safety Answer Date Recorded Have you ever been in or are you currently in a harmful physical or emotional relationship or is someone making you feel afraid or unsafe? 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 Gender Identity Not on file Sexual Orientation Not on file Last Filed Vital Signs Vital Sign Reading Time Taken Comments Blood Pressure 132/76 12/06/2024 5:23 PM CDT Pulse 93 12/06/2024 5:23 PM CDT Temperature 36.2 C (97.2 F) 12/06/2024 5:23 PM CDT Respiratory Rate 14 12/06/2024 5:23 PM CDT Oxygen Saturation 97% 12/06/2024 5:23 PM CDT Inhaled Oxygen Concentration - - Weight 69.4 kg (153 lb) 12/06/2024 5:23 PM CDT Height 172.7 cm (5' 8) 12/06/2024 5:23 PM CDT Body Mass Index 23.26 12/06/2024 5:23 PM CDT Plan of Treatment Health Maintenance Due Date Last Done Comments Hepatitis C Screening 1968 DTaP/Tdap/Td Vaccine (1 - Tdap) 11/01/1979 Hepatitis B Screening 1986 Regular Well Visit/Exam 18-64 1986 Cervical Cancer Screening 08/11/20162015, 06/25/2014, 02/12/2014 Zoster Vaccine (1 of 2) 2018 Depression Screening 03/05/2020 03/05/2019 Breast Cancer Screening-Mammogram 07/31/2023 07/30/2022, 05/21/2022, 10/26/2020, Additional history exists Influenza Vaccine (#1) 2024 Colon Cancer Screening-Colonoscopy 12/07/2030 12/07/2020 Colon Cancer Screening-CT Colonography Discontinued 12/07/2020 Colon Cancer Screening-DNA Stool Discontinued 12/07/2020 Colon Cancer Screening-FIT Discontinued 12/07/2020 Colon Cancer Screening-Sigmoidoscopy Discontinued 12/07/2020 Pneumococcal vaccine <65 Aged Out No longer eligible based on patient's age to complete this topic Procedures Procedure Name Priority Date/Time Associated Diagnosis Comments CT LUMBAR SPINE WO CONTRAST ED 12/06/2024 5:44 PM CDT COLONOSCOPY Routine 12/07/2020 DIAGNOSTIC MAMMOGRAM BILATERAL W LUAN 10/09/2019 9:37 AM CDT THINPREP PAP Routine 08/12/2015 10:26 AM CDT from Last 3 Months or Most Recently Relevant to Health Maintenance Results * CT Lumbar Spine WO Contrast (12/06/2024 5:44 PM CDT) Anatomical Region Laterality Modality Spine N/A Computed Tomogra phy 12/06/2024 5:56 PM CDT Narrative 12/06/2024 6:04 PM CDT EXAM DESCRIPTION: CT LUMBAR SPINE WO CONTRAST REASON FOR STUDY: Back trauma, no prior imaging (Age >= 16y) she fell and slid down her backside from three stairs. Denies hitting head, no LOC. No thinners. Patient alert and oriented x 4 of 4, walking with steady gait and no additional needs or complaints. TECHNIQUE: Axial images acquired through the lumbar spine without intravenous contrast. Reconstructed coronal and sagittal MPR images reviewed. All images stored on PACS. Automated exposure control was used as a dose optimization technique for this examination. COMPARISON: None FINDINGS: SEGMENTATION: No transitional anatomy. The lowest well-developed disc space is labeled L5-S1. ALIGNMENT: Normal. VERTEBRAE: No fracture. Vertebral heights well-maintained. DISC HEIGHT: Well-maintained. INDIVIDUAL DISC LEVELS: Mild broad-based disc bulges and ligamentum flavum hypertrophy at L2-L3 to L4-L5. No significant spinal canal or neural foraminal stenosis. VISUALIZED RIBS: No fractures. SOFT TISSUES: No significant or acute finding in adjacent soft tissues. OTHER: Bilateral tubal ligation clips. IMPRESSION: No acute findings of the lumbar spine. THIS IS AN ELECTRONICALLY VERIFIED FINAL REPORT 12/06/2024 6:04 PM - Electronically signed by Joao Lawton M.D. KR: BLAIRE Report ID: [id number] Reading Location: [id number] Procedure Note Joao Lawton MD - 12/06/2024 EXAM DESCRIPTION: CT LUMBAR SPINE WO CONTRAST REASON FOR STUDY: Back trauma, no prior imaging (Age >= 16y) she fell and slid down her backside from three stairs. Denies hittinghead, no LOC. No thinners. Patient alert and oriented x 4 of 4, walkingwith steady gait and no additional needs or complaints. TECHNIQUE: Axial images acquired through the lumbar spine withoutintravenous contrast. Reconstructed coronal and sagittal MPR images reviewed. Allimages stored on PACS. Automated exposure control was used as a dose optimization technique forthis examination. COMPARISON: None FINDINGS: SEGMENTATION: No transitional anatomy. The lowestwell-developed disc space is labeled L5-S1. ALIGNMENT: Normal. VERTEBRAE: No fracture. Vertebral heights well-maintained. DISC HEIGHT: Well-maintained. INDIVIDUAL DISC LEVELS: Mild broad-based disc bulges and ligamentumflavum hypertrophy at L2-L3 to L4-L5. No significant spinal canal or neural foraminal stenosis. VISUALIZED RIBS: No fractures. SOFT TISSUES: No significant or acute finding in adjacent soft tissues. OTHER: Bilateral tubal ligation clips. IMPRESSION: No acute findings of the lumbar spine. THIS IS AN ELECTRONICALLY VERIFIED FINAL REPORT 12/06/2024 6:04 PM - Electronically signed by Joao Lawton M.D. KR: BLAIRE Report ID: [id number] Reading Location: [id number] PROCEDURES Final Result * Colonoscopy (12/07/2020) Anatomical Region Laterality Modality Other Historical Provider ENDOSCOPY PROCEDURES Coleen l Result * Diagnostic Mammogram Bilateral W Luan (10/09/2019 9:37 AM CDT) Anatomical Region Laterality Modality Breast Bilateral Mammography 10/09/2019 9:57 AM CDT Narrative 10/09/2019 10:33 AM CDT Patient Name: RADHA GROVESHANICEGARRICK Marrufo Dr: Jimy Carr MD, D.O.B: 1970 Exam Date: 10/09/19 0937 Age: 48 Sex: Female MR#: [id number] Loc: RADIOLOGY REPORT Order #[id number] [facility] Bilat Diagnostic 3D Signed - MG BILATERAL DIGITAL DIAGNOSTIC MAMMOGRAM 3D/2D WITH MEDIOLATERAL OBLIQUE CRANIOCAUDAL: 10/09/2019 The study was acquired using full field digital technology and interpreted from soft copy. 2D digital mammographic views, as well as 3D digital tomosynthesis were performed in the CC and MLO projections. CLINICAL: 48-year-old woman comes in today for evaluation of a palpable lump in the left breast, and routine annual screening of the right breast. COMPARISONS: Comparison is made to exams dated: 05/23/2018 mammogram, 01/17/2017 mammogram, 01/17/2017 ultrasound, 09/07/2015 mammogram, 03/26/2014 mammogram, and 07/31/2011 mammogram - [facility]. BREAST TISSUE: The tissue of both breasts is extremely dense, which lowers the sensitivity of mammography. MAMMOGRAPHIC FINDINGS: A metallic BB marker was placed on the left breast at the level of the new palpable lump of concern, corresponding to the 4 o'clock position at anterior depth. Evaluation with digital breast tomosynthesis demonstrates an oval mass with partially obscured and partially circumscribed margins that measures approximately 2.5 cm. Multiple additional masses are noted in both breasts, in keeping with known cysts. There are also scattered benign-appearing microcalcifications in both breasts without suspicious interval change. Targeted sonographic examination of the left breast will be performed. ULTRASOUND FINDINGS: Targeted sonographic examination of the left breast is performed at the level of the new palpable lump of concern, corresponding to the 4:30 o'clock position, 4 cm from the nipple. At this level there is an oval, circumscribed, anechoic mass that measures 2.5 x 1.3 x 2.9 cm. There is posterior acoustic enhancement, and no internal blood flow on color Doppler. This is consistent with a benign cyst. IMPRESSION: BI-RAD 2 BENIGN 1. The palpable lump of concern in the left breast corresponds to a benign cyst at the 4:30 o'clock position, 4 cm from the nipple, measuring 2.9 cm in greatest diameter. There are no suspicious imaging features. Multiple additional circumscribed masses are noted in both breasts, fluctuating in size, in keeping with known cysts. Continued physical examination, and annual screening mammography is recommended. Any further management at this time should be based on clinical assessment. The patient was notified of the results at the time of the examination. Electronically signed by: Ricardo Tapia rl/:10/09/2019 10:33:52 Manager Furniture: Naheed Gavin [facility] letter sent: Normal Exam Abnormal History Reading location: BI-RADS: 2 Benign REPORT ELECTRONICALLY SIGNED IN OTHER VENDOR SYSTEM Resulting Agency Comment O Procedure Note Ricardo Liu MD - 10/09/2019 Patient Name: SHANICE GROVE Emelia Dr: iJmy Carr MD D.O.B: 1970 Exam Date: 10/09/19 0937 Age: 48 Sex: Female MR#: [id number] Loc: RADIOLOGY REPORT Order #[id number] [facility] Bil Diagnostic 3D Signed - MG BILATERAL DIGITAL DIAGNOSTIC MAMMOGRAM 3D/2D WITH MEDIOLATERAL OBLIQUE CRANIOCAUDAL: 10/09/2019 The study was acquired using full field digital technology andinterpreted from soft copy. 2D digital mammographic views, as well as 3D digital tomosynthesis were performed in the CC and MLO projections. CLINICAL: 48-year-old woman comes in today for evaluation of a palpablelump in the left breast, and routine annual screening of the right breast. COMPARISONS: Comparison is made to exams dated: 05/23/2018 mammogram,01/17/2017 mammogram, 01/17/2017 ultrasound, 09/07/2015 mammogram, 03/26/2014mammogram, and 07/31/2011 mammogram - [facility]. BREAST TISSUE: The tissue of both breasts is extremely dense, whichlowers the sensitivity of mammography. MAMMOGRAPHIC FINDINGS: A metallic BB marker was placed on the leftbreast at the level of the new palpable lump of concern, corresponding to the 4o'clock position at anterior depth. Evaluation with digital breast tomosynthesis demonstrates an oval mass with partially obscured and partiallycircumscribed margins that measures approximately 2.5 cm. Multiple additional massesare noted in both breasts, in keeping with known cysts. There are alsoscattered benign-appearing microcalcifications in both breasts without suspicious interval change. Targeted sonographic examination of the left breastwill be performed. ULTRASOUND FINDINGS: Targeted sonographic examination of the leftbreast is performed at the level of the new palpable lump of concern, correspondingto the 4:30 o'clock position, 4 cm from the nipple. At this level there isan oval, circumscribed, anechoic mass that measures 2.5 x 1.3 x 2.9 cm.There is posterior acoustic enhancement, and no internal blood flow on colorDoppler. This is consistent with a benign cyst. IMPRESSION: BI-RAD 2 BENIGN 1. The palpable lump of concern in the left breast corresponds to abenign cyst at the 4:30 o'clock position, 4 cm from the nipple, measuring 2.9 cm in greatest diameter. There are no suspicious imaging features. Multiple additional circumscribed masses are noted in both breasts, fluctuating insize, in keeping with known cysts. Continued physical examination, and annual screening mammography is recommended. Any further management at thistime should be based on clinical assessment. The patient was notified of the results at the time of the examination. Electronically signed by: Ricardo Tapia rl/:10/09/2019 10:33:52 Manager Furniture: Naheed Gavin [facility] letter sent: Normal Exam Abnormal History Reading location: BI-RADS: 2 Benign REPORT ELECTRONICALLY SIGNED IN OTHER VENDOR SYSTEM us Jimy Carr MD IMG MAMMO PROCEDURES Final Re sult * ThinPrep Pap (08/12/2015 10:26 AM CDT) Thin Prep Pap Smear SEE BELOW () 08/16 1:42 PM CDT [facility] HISTORICAL RESULTS Comment: Car Shagger ThinPrep Cytology Final Report ThinPrep Pap Specimen Source Cervix/Endocervix Specimen Adequacy Satisfactory for interpretation, endocervical cells (transformation zone) present. Interpretation Negative for intraepithelial lesion or malignancy. 08/17/15 [employer] Clippings: BECCA Canas(ASCP) Reviewed by: JENNA 08/17/15 Verified By: BECCA Ji(ASCP) electronic signature [facility], Department of Pathology [address] [place] [id number] For questions regarding this case, call ext. [phone] CPT Code(s) 91475 Clinical History LMP: [id number] : N : N IUD: N Hormone Therapy: N Postmenopausal: N Previous surgery date and type: N Hysterectomy: N Chemotherapy: N TINO Exposure: N Radiation: N Previous Abnormal Pap? Details: N Diagnostic or Screening Pap Test: Screening Performed by [employer], [address] [place] [id number] [email or web address], Shahid Feldman MD - Lab. Director 08/12/2015 10:2 6 AM CDT 08/12/2015 5:10 PM CDT us Dennise Adams DO LAB PATHOLOGY ORDERABL ES Final Result [facility] HISTORICAL RESULTS from Last 3 Months or Most Recently Relevant to Health Maintenance [place] [address] [employer] [facility] Member Subscriber Plan / Payer ( fective 2018-Present) Name:Shanice Grove Member ID:[id number] Relation to Subscriber:Self Name:Shanice Grove Subscriber ID:[id number] Payer ID:[id number] Type:SupportBeeO/PPO Address: [address] [place] [address] [facility] [address] Care Teams Dental Cream Maker Relationship Specialty Start Date End Date Addison Christy PA PCP - General Family Medicine 12/06/21
== END 2025-01-28 15:43 | disposition home or self-care (01) ==
LOC: ANHFOHIMG 16:48
PROVIDERS: PCP Nurse Practitioner; Visit Provider Nurse Practitioner
DX: Z12.31 Encounter for screening mammogram for malignant neoplasm of breast (principal)
CPT/HCPCS: 77063; 77067